=== PATIENT | male | born 1980 | race Caucasian/White ===

== ENCOUNTER 2019-03-01 04:45 | Emergency (ER) | payer OTHER ==
[~2019-03-01] VITALS: Ht 180.3 cm; Wt 104.3 kg
--- NOTE | 2019-03-01 05:17 | NUR ---
Dr. Mae on bedside for MSE.
[2019-03-01] MEDS ORDERED: predniSONE 20 MG TABLET ONE (05:34)
[2019-03-01] MEDS: predniSONE 10 MG TABLET PO ONE (05:35)
[2019-03-01] MEDS: ALBUTEROL SULFATE 2.5 MG/3 ML NEBU NEB ONE (05:38)
[2019-03-01] MEDS: IPRATROPIUM BROMIDE 0.5 MG/2.5 ML NEBU NEB ONE (05:38)
[2019-03-01] MEDS ORDERED: ALBUTEROL SULFATE 2.5 MG/3 ML NEBU ONE (05:42)
[2019-03-01] MEDS ORDERED: IPRATROPIUM BROMIDE 0.5 MG/2.5 ML NEBU ONE (05:43)
--- NOTE | 2019-03-01 06:53 | NUR ---
PATIENT RECEIVING CONTINUAL NEB. TREATMENT STATES HE FEELS MUCH BETTER.
== END 2019-03-01 07:00 | disposition home or self-care (01) ==
LOC: ER 04:45
DX: J45.901 Unspecified asthma with (acute) exacerbation (principal); Z87.891 Personal history of nicotine dependence
CPT/HCPCS: 93005; 94644; 99285; J7512; A4663; J3590